=== PATIENT | female | born 1955 | race African-American/Black ===

== ENCOUNTER 2016-09-25 17:06 | Emergency (ER) | payer MEDICAID ==
[~2016-09-25] VITALS: Ht 162.6 cm; Wt 55.0 kg
[~2016-09-25 17:06] MED LIST: KEPP500 PO; PHEN100C4 PO
[2016-09-25] MEDS ORDERED: KETOROLAC 30MG/ML VIAL IV STA (22:24)
[2016-09-25] MEDS ORDERED: SODIUM CHLORIDE 0.9% 1,000 ML IV ONE (22:24)
[2016-09-25] MEDS ORDERED: ONDANSETRON HCL 4MG/2ML VIAL IV STA (22:24)
[2016-09-25] MEDS ORDERED: FAMOTIDINE 20MG/2ML VIAL IV ONE (22:30)
[2016-09-25 23:43] LABS: CLARITY URINE CLEAR (CLEAR); COLOR URINE YELLOW (YELLOW); GLUCOSE URINE NEGATIVE (NEGATIVE); KETONES URINE NEGATIVE (NEGATIVE); LEUKOCYTE ESTERASE URINE NEGATIVE (NEGATIVE); NITRITE URINE NEGATIVE (NEGATIVE); OCCULT BLOOD URINE NEGATIVE (NEGATIVE); PROTEIN URINE NEGATIVE (NEGATIVE); SPECIFIC GRAVITY URINE 1.013 (1.005-1.030); UROBILINOGEN URINE 0.2 E.U./dL (0.2-1.0)
[2016-09-26 00:02] LABS: *AMPHETAMINES SCREEN URINE NEGATIVE (NEGATIVE); *BARBITURATES SCREEN URINE NEGATIVE (NEGATIVE); *BENZODIAZEPINES SCREEN URINE NEGATIVE (NEGATIVE); *COCAINE SCREEN URINE NEGATIVE (NEGATIVE); CANNABINOID URINE SCREEN NEGATIVE (NEGATIVE); ECSTASY MDMA SCREEN URINE NEGATIVE (NEGATIVE); METHADONE URINE SCREEN NEGATIVE (NEGATIVE); OPIATES URINE SCREEN NEGATIVE (NEGATIVE); PHENCYCLIDINE URINE SCREEN NEGATIVE (NEGATIVE)
[2016-09-26 00:15] LABS: BASOPHILS % 0.8 % (0.0-2.0); EOSINOPHILS % 4.2 % (0.0-5.0); HEMATOCRIT. 35.3 % (36.0-48.0); HEMOGLOBIN. 11.8 g/dL (12.0-16.0); LYMPHOCYTES % 31.7 % (20.0-50.0); MEAN CORPUSCULAR HEMOGLOBIN 28.2 pg (28.0-32.0); MEAN CORPUSCULAR HGB CONC 33.6 g/dL (31.0-37.0); MONOCYTES % 13.7 % (2.0-8.0); NEUTROPHILS % 49.6 % (40.0-76.0); RED CELL DISTRIBUTION WIDTH 23.3 % (11.6-14.6); WHITE BLOOD COUNT 6.3 x1000/uL (4.5-11.0)
[2016-09-26 00:19] LABS: DIFFERENTIAL COMMENT 1
[2016-09-26 00:20] LABS: CHLORIDE 103 mEq/L (98-107); INDEX HEMOLYSI 1 (1-3); INDEX ICTERIC 1 (1-4); INDEX LIPEMIC 1 (1-3)
[2016-09-26 00:26] LABS: ANION GAP 15; CARBON DIOXIDE 27 mEq/L (21-32); LIPASE 142 IU/L (73-393); UREA NITROGEN BLOOD 12 mg/dL (7-21); eGFR > 60 mL/min (>60)
[2016-09-26 00:36] LABS: MEAN PLATELET VOLUME 6.9 fl (7.4-10.4); PLATELET 379 x1000/uL (130-400)
[2016-09-26] MEDS ORDERED: IBUPROFEN 400MG TABLET PO ONE (00:45)
[2016-09-26 01:15] VITALS: BP 127/74
== END 2016-09-26 01:15 | disposition home or self-care (01) ==
LOC: ER 17:22
DX: R10.13 Epigastric pain (principal); R11.2 Nausea with vomiting, unspecified; E11.9 Type 2 diabetes mellitus without complications; R56.9 Unspecified convulsions
CPT/HCPCS: 36415; 80048; 80305; 81003; 83690; 85025; 96360; 99284; J7030

== ENCOUNTER 2016-09-26 10:17 | Emergency (ER) | payer MEDICAID ==
[~2016-09-26] VITALS: Ht 165.1 cm; Wt 57.0 kg
[2016-09-26 10:47] VITALS: BP 158/102
== END 2016-09-26 17:31 | disposition home or self-care (01) ==
LOC: ER 10:20
DX: R56.9 Unspecified convulsions (principal); Z79.899 Other long term (current) drug therapy; Z59.0 Homelessness
CPT/HCPCS: 99281

== ENCOUNTER 2016-11-20 05:57 | Emergency (ER) | payer MEDICAID ==
[~2016-11-20] VITALS: Ht 170.2 cm; Wt 59.0 kg
[2016-11-20] MEDS ORDERED: LEVETIRACETAM 500MG TABLET PO ONE (06:45)
[2016-11-20] MEDS ORDERED: PHENYTOIN SODIUM 1,000 MG in SODIUM CHLORIDE 0.9% 100 ML IV ONE (07:30)
[2016-11-20] MEDS ORDERED: PHENYTOIN SODIUM EXTENDED 100MG CAPSULE PO ONE (09:15)
[2016-11-20 10:30] VITALS: BP 133/65
== END 2016-11-20 12:04 | disposition home or self-care (01) ==
LOC: ER 06:58
DX: G40.909 Epilepsy, unspecified, not intractable, without status epilepticus (principal); I10 Essential (primary) hypertension; F17.200 Nicotine dependence, unspecified, uncomplicated
CPT/HCPCS: 36415; 80185; 96365; 99284; J1165; Z7610; J7050

== ENCOUNTER 2016-11-24 20:13 | Emergency (ER) | payer MEDICAID ==
[~2016-11-24] VITALS: Ht 167.6 cm; Wt 50.0 kg
[2016-11-25 01:35] VITALS: BP 130/88
== END 2016-11-25 01:35 | disposition home or self-care (01) ==
LOC: ER 20:28
DX: M25.571 Pain in right ankle and joints of right foot (principal); M79.604 Pain in right leg; G40.909 Epilepsy, unspecified, not intractable, without status epilepticus; I10 Essential (primary) hypertension; Z86.11 Personal history of tuberculosis; Z85.028 Personal history of other malignant neoplasm of stomach; F17.210 Nicotine dependence, cigarettes, uncomplicated; Z59.0 Homelessness; W01.0XXA Fall on same level from slipping, tripping and stumbling without subsequent striking against object, initial encounter; Y93.89 Activity, other specified; Y92.488 Other paved roadways as the place of occurrence of the external cause
CPT/HCPCS: 99283

== ENCOUNTER 2016-11-25 22:19 | Emergency (ER) | payer MEDICAID ==
[~2016-11-25] VITALS: Ht 170.2 cm; Wt 64.0 kg
[2016-11-26] MEDS ORDERED: IBUPROFEN 400MG TABLET PO ONE (01:45)
[2016-11-26 04:28] VITALS: BP 129/76
== END 2016-11-26 04:53 | disposition home or self-care (01) ==
LOC: ER 23:03
DX: M79.604 Pain in right leg (principal); J45.909 Unspecified asthma, uncomplicated; I10 Essential (primary) hypertension; E11.9 Type 2 diabetes mellitus without complications; F17.200 Nicotine dependence, unspecified, uncomplicated
CPT/HCPCS: 73562; 73590; 99284

== ENCOUNTER 2016-12-07 18:18 | Emergency (ER) | payer MEDICAID, OTHER ==
[~2016-12-07] VITALS: Ht 162.6 cm; Wt 55.0 kg
[2016-12-07] MEDS ORDERED: IBUPROFEN 600MG TABLET PO STA (18:32)
[2016-12-07] MEDS ORDERED: LEVETIRACETAM 500MG TABLET PO ONE (18:45)
[2016-12-07 18:54] LABS: EOSINOPHILS % 4.9 % (0.0-5.0); HEMATOCRIT. 35.7 % (36.0-48.0); HEMOGLOBIN. 11.6 g/dL (12.0-16.0); LYMPHOCYTES % 34.3 % (20.0-50.0); MEAN CORPUSCULAR HEMOGLOBIN 28.7 pg (28.0-32.0); MEAN CORPUSCULAR VOLUME 88.5 fL (81.0-99.0); MEAN PLATELET VOLUME 6.8 fl (7.4-10.4); MONOCYTES % 11.1 % (2.0-8.0); NEUTROPHILS % 48.7 % (40.0-76.0); PLATELET 401 x1000/uL (130-400); RED BLOOD CELL COUNT 4.03 mill/uL (4.2-5.4); RED CELL DISTRIBUTION WIDTH 17.4 % (11.6-14.6)
[2016-12-07 18:57] LABS: CHLORIDE 106 mEq/L (98-107)
[2016-12-07 19:05] LABS: CARBON DIOXIDE 26 mEq/L (21-32); PHENYTOIN 5.5 ug/mL (10-20)
[2016-12-07 19:15] LABS: CLARITY URINE CLOUDY (CLEAR); COLOR URINE YELLOW (YELLOW); GLUCOSE URINE NEGATIVE (NEGATIVE); KETONES URINE TRACE (NEGATIVE); LEUKOCYTE ESTERASE URINE TRACE (NEGATIVE); NITRITE URINE NEGATIVE (NEGATIVE); OCCULT BLOOD URINE NEGATIVE (NEGATIVE); PROTEIN URINE NEGATIVE (NEGATIVE); SPECIFIC GRAVITY URINE 1.029 (1.005-1.030)
[2016-12-07] MEDS ORDERED: PHENYTOIN SODIUM EXTENDED 100MG CAPSULE PO ONE (19:30)
[2016-12-07 19:40] LABS: *AMPHETAMINES SCREEN URINE NEGATIVE (NEGATIVE); *BARBITURATES SCREEN URINE NEGATIVE (NEGATIVE); *BENZODIAZEPINES SCREEN URINE NEGATIVE (NEGATIVE); *COCAINE SCREEN URINE NEGATIVE (NEGATIVE); CANNABINOID URINE SCREEN NEGATIVE (NEGATIVE); METHADONE URINE SCREEN NEGATIVE (NEGATIVE); OPIATES URINE SCREEN NEGATIVE (NEGATIVE); PHENCYCLIDINE URINE SCREEN NEGATIVE (NEGATIVE)
[2016-12-07 23:24] VITALS: BP 128/78
== END 2016-12-07 23:45 | disposition home or self-care (01) ==
LOC: ER 18:19
DX: G40.909 Epilepsy, unspecified, not intractable, without status epilepticus (principal); M25.511 Pain in right shoulder; M79.605 Pain in left leg; E11.9 Type 2 diabetes mellitus without complications; I10 Essential (primary) hypertension; J45.909 Unspecified asthma, uncomplicated
CPT/HCPCS: 36415; 73030; 80053; 80185; 80305; 81001; 85025; 99285; Z7610

== ENCOUNTER 2016-12-17 18:12 | Emergency (ER) | payer MEDICAID, OTHER ==
[~2016-12-17] VITALS: Ht 172.7 cm; Wt 64.0 kg
[2016-12-17] MEDS ORDERED: ONDANSETRON 4MG ODT PO PRN (23:15)
[2016-12-17 23:18] LABS: BASOPHILS % 0.4 % (0.0-2.0); HEMATOCRIT. 33.9 % (36.0-48.0); LYMPHOCYTES % 30.5 % (20.0-50.0); MEAN CORPUSCULAR HEMOGLOBIN 29.3 pg (28.0-32.0); MEAN PLATELET VOLUME 6.7 fl (7.4-10.4); MONOCYTES % 13.1 % (2.0-8.0); PLATELET 350 x1000/uL (130-400); RED BLOOD CELL COUNT 3.76 mill/uL (4.2-5.4); RED CELL DISTRIBUTION WIDTH 17.4 % (11.6-14.6)
[2016-12-17 23:22] LABS: CLARITY URINE CLEAR (CLEAR); COLOR URINE YELLOW (YELLOW); GLUCOSE URINE NEGATIVE (NEGATIVE); KETONES URINE NEGATIVE (NEGATIVE); LEUKOCYTE ESTERASE URINE 2+ (NEGATIVE); NITRITE URINE POSITIVE (NEGATIVE); OCCULT BLOOD URINE NEGATIVE (NEGATIVE); PROTEIN URINE NEGATIVE (NEGATIVE); SPECIFIC GRAVITY URINE 1.009 (1.005-1.030); UROBILINOGEN URINE 0.2 E.U./dL (0.2-1.0)
[2016-12-17 23:29] LABS: CARBON DIOXIDE 29 mEq/L (21-32); CHLORIDE 104 mEq/L (98-107); ETHANOL BLOOD 129 mg/dL
[2016-12-17 23:33] LABS: *AMPHETAMINES SCREEN URINE NEGATIVE (NEGATIVE); *BARBITURATES SCREEN URINE NEGATIVE (NEGATIVE); *BENZODIAZEPINES SCREEN URINE NEGATIVE (NEGATIVE); *COCAINE SCREEN URINE PRESUMTIVE POSITIVE (NEGATIVE); CANNABINOID URINE SCREEN NEGATIVE (NEGATIVE); METHADONE URINE SCREEN NEGATIVE (NEGATIVE); OPIATES URINE SCREEN NEGATIVE (NEGATIVE); PHENCYCLIDINE URINE SCREEN NEGATIVE (NEGATIVE)
[2016-12-18] MEDS ORDERED: LEVETIRACETAM 500MG TABLET PO ONE (00:15)
[2016-12-18] MEDS ORDERED: PHENYTOIN SODIUM EXTENDED 100MG CAPSULE PO ONE (00:15)
[2016-12-18] MEDS ORDERED: SODIUM CHLORIDE 0.9% 1,000 ML IV ONE (00:17)
[2016-12-18] MEDS ORDERED: DIPHENHYDRAMINE 50MG/ML VIAL IV ONE (00:30)
[2016-12-18] MEDS ORDERED: CEFTRIAXONE 1 G PREMIX 50 ML IV ONE (00:30)
[2016-12-18 06:31] VITALS: BP 112/62
== END 2016-12-18 06:11 | disposition home or self-care (01) ==
LOC: ER 18:22
DX: N39.0 Urinary tract infection, site not specified (principal); F14.10 Cocaine abuse, uncomplicated; F10.10 Alcohol abuse, uncomplicated; M79.604 Pain in right leg; J45.909 Unspecified asthma, uncomplicated; I10 Essential (primary) hypertension; E11.9 Type 2 diabetes mellitus without complications; F17.200 Nicotine dependence, unspecified, uncomplicated
CPT/HCPCS: 36415; 80053; 80305; 81001; 85025; 96365; 96375; 99284; G0482; J0696; J1200; J7030; Q0162; Z7610

== ENCOUNTER 2016-12-19 15:51 | Emergency (ER) | payer MEDICAID ==
[~2016-12-19] VITALS: Ht 167.6 cm; Wt 55.0 kg
[2016-12-19] MEDS ORDERED: KETOROLAC 30MG/ML VIAL IV ONE (18:30)
[2016-12-19] MEDS ORDERED: FAMOTIDINE 20MG/2ML VIAL IV SCH (18:30)
[2016-12-19] MEDS ORDERED: SODIUM CHLORIDE 0.9% 1,000 ML IV ONE (18:30)
[2016-12-19 19:35] LABS: BASOPHILS % 1.3 % (0.0-2.0); EOSINOPHILS % 12.3 % (0.0-5.0); HEMATOCRIT. 31.5 % (36.0-48.0); HEMOGLOBIN. 10.4 g/dL (12.0-16.0); LYMPHOCYTES % 28.8 % (20.0-50.0); MEAN CORPUSCULAR HEMOGLOBIN 29.3 pg (28.0-32.0); MEAN CORPUSCULAR VOLUME 88.8 fL (81.0-99.0); MEAN PLATELET VOLUME 6.6 fl (7.4-10.4); MONOCYTES % 14.1 % (2.0-8.0); NEUTROPHILS % 43.5 % (40.0-76.0); PLATELET 315 x1000/uL (130-400); RED BLOOD CELL COUNT 3.55 mill/uL (4.2-5.4)
[2016-12-19 19:47] LABS: CARBON DIOXIDE 26 mEq/L (21-32); CHLORIDE 108 mEq/L (98-107)
[2016-12-20 02:25] VITALS: BP 131/74
== END 2016-12-20 02:38 | disposition home or self-care (01) ==
LOC: ER 16:01
DX: K80.20 Calculus of gallbladder without cholecystitis without obstruction (principal); S79.922A Unspecified injury of left thigh, initial encounter; I10 Essential (primary) hypertension; W18.30XA Fall on same level, unspecified, initial encounter; Y93.01 Activity, walking, marching and hiking; Y92.410 Unspecified street and highway as the place of occurrence of the external cause; Y99.8 Other external cause status
CPT/HCPCS: 36415; 73502; 73552; 76705; 80053; 85025; 96361; 96374; 96375; 99285; J1885; J3490; J7030

== ENCOUNTER 2017-01-07 08:48 | Emergency (ER) | payer MEDICAID ==
[~2017-01-07] VITALS: Ht 165.1 cm; Wt 63.0 kg
[2017-01-07 12:05] LABS: CLARITY URINE CLEAR (CLEAR); COLOR URINE YELLOW (YELLOW); GLUCOSE URINE NEGATIVE (NEGATIVE); KETONES URINE NEGATIVE (NEGATIVE); LEUKOCYTE ESTERASE URINE TRACE (NEGATIVE); NITRITE URINE NEGATIVE (NEGATIVE); OCCULT BLOOD URINE NEGATIVE (NEGATIVE); PH URINE 6.5 (4.5-8.0); PROTEIN URINE NEGATIVE (NEGATIVE); SPECIFIC GRAVITY URINE 1.016 (1.005-1.030)
[2017-01-07 12:30] LABS: BASOPHILS % 0.2 % (0.0-2.0); EOSINOPHILS % 0.7 % (0.0-5.0); HEMATOCRIT. 37.1 % (36.0-48.0); HEMOGLOBIN. 11.8 g/dL (12.0-16.0); LYMPHOCYTES % 13.8 % (20.0-50.0); MEAN CORPUSCULAR HEMOGLOBIN 28.1 pg (28.0-32.0); MEAN CORPUSCULAR VOLUME 87.9 fL (81.0-99.0); MEAN PLATELET VOLUME 6.8 fl (7.4-10.4); MONOCYTES % 7.2 % (2.0-8.0); NEUTROPHILS % 78.1 % (40.0-76.0); PLATELET 310 x1000/uL (130-400); RED BLOOD CELL COUNT 4.22 mill/uL (4.2-5.4); RED CELL DISTRIBUTION WIDTH 18.1 % (11.6-14.6)
[2017-01-07 12:39] LABS: PROTHROMBIN TIME 10.7 sec
[2017-01-07 12:48] LABS: CARBON DIOXIDE 32 mEq/L (21-32); CHLORIDE 103 mEq/L (98-107)
[2017-01-07 13:21] LABS: *AMPHETAMINES SCREEN URINE NEGATIVE (NEGATIVE); *BARBITURATES SCREEN URINE NEGATIVE (NEGATIVE); *BENZODIAZEPINES SCREEN URINE NEGATIVE (NEGATIVE); *COCAINE SCREEN URINE NEGATIVE (NEGATIVE); CANNABINOID URINE SCREEN NEGATIVE (NEGATIVE); METHADONE URINE SCREEN NEGATIVE (NEGATIVE); OPIATES URINE SCREEN NEGATIVE (NEGATIVE); PHENCYCLIDINE URINE SCREEN NEGATIVE (NEGATIVE)
[2017-01-07 22:40] VITALS: BP 136/80
== END 2017-01-07 22:40 | disposition home or self-care (01) ==
LOC: ER 08:51
DX: N39.0 Urinary tract infection, site not specified (principal); M79.651 Pain in right thigh; J45.909 Unspecified asthma, uncomplicated; E11.9 Type 2 diabetes mellitus without complications; I10 Essential (primary) hypertension; C80.1 Malignant (primary) neoplasm, unspecified; Z59.0 Homelessness; W01.0XXA Fall on same level from slipping, tripping and stumbling without subsequent striking against object, initial encounter; Y93.89 Activity, other specified; Y92.89 Other specified places as the place of occurrence of the external cause; Y99.8 Other external cause status
CPT/HCPCS: 36415; 73502; 73552; 80053; 80305; 81001; 83690; 85025; 85610; 99285

== ENCOUNTER 2017-01-08 06:56 | Emergency (ER) | payer MEDICAID ==
[~2017-01-08] VITALS: Ht 170.2 cm; Wt 69.0 kg
[2017-01-08] MEDS: KETOROLAC 60MG/2ML VIAL IM ONE ×2 (13:04→13:09)
[2017-01-08 13:27] LABS: BASOPHILS % 0.9 % (0.0-2.0); EOSINOPHILS % 1.5 % (0.0-5.0); HEMATOCRIT. 36.5 % (36.0-48.0); HEMOGLOBIN. 11.9 g/dL (12.0-16.0); LYMPHOCYTES % 23.1 % (20.0-50.0); MEAN CORPUSCULAR HEMOGLOBIN 28.7 pg (28.0-32.0); MEAN CORPUSCULAR VOLUME 88.2 fL (81.0-99.0); MEAN PLATELET VOLUME 6.8 fl (7.4-10.4); MONOCYTES % 12.9 % (2.0-8.0); NEUTROPHILS % 61.6 % (40.0-76.0); PLATELET 294 x1000/uL (130-400); RED BLOOD CELL COUNT 4.13 mill/uL (4.2-5.4); RED CELL DISTRIBUTION WIDTH 17.8 % (11.6-14.6)
[2017-01-08 13:28] LABS: CLARITY URINE CLOUDY (CLEAR); COLOR URINE DARK YELLOW (YELLOW); GLUCOSE URINE NEGATIVE (NEGATIVE); KETONES URINE TRACE (NEGATIVE); LEUKOCYTE ESTERASE URINE 1+ (NEGATIVE); NITRITE URINE NEGATIVE (NEGATIVE); OCCULT BLOOD URINE NEGATIVE (NEGATIVE); PH URINE 6.5 (4.5-8.0); PROTEIN URINE TRACE (NEGATIVE); SPECIFIC GRAVITY URINE 1.024 (1.005-1.030)
[2017-01-08 13:38] LABS: CARBON DIOXIDE 30 mEq/L (21-32); CHLORIDE 104 mEq/L (98-107)
[2017-01-08 16:03] VITALS: BP 118/59
== END 2017-01-08 17:55 | disposition home or self-care (01) ==
LOC: ER 11:34
DX: N39.0 Urinary tract infection, site not specified (principal); M79.604 Pain in right leg; R51 Headache; F17.200 Nicotine dependence, unspecified, uncomplicated; I10 Essential (primary) hypertension; E11.9 Type 2 diabetes mellitus without complications; W19.XXXA Unspecified fall, initial encounter; Y93.89 Activity, other specified; Y92.89 Other specified places as the place of occurrence of the external cause; Y99.8 Other external cause status
CPT/HCPCS: 36415; 73590; 80048; 81001; 85025; 99285; J1885

== ENCOUNTER 2017-09-19 19:53 | Inpatient (IN) | payer SELFPAY ==
[~2017-09-19] VITALS: Ht 170.2 cm; Wt 65.8 kg
[2017-09-19] MEDS ORDERED: ONDANSETRON HCL 4MG/2ML VIAL IV STA (21:08)
[2017-09-19] MEDS ORDERED: SODIUM CHLORIDE 0.9% 1,000 ML IV ONE (21:08)
[2017-09-19 21:37] LABS: CHLORIDE 105 mEq/L (98-107)
[2017-09-19 21:41] LABS: BASOPHILS % 0.8 % (0.0-2.0); EOSINOPHILS % 2.9 % (0.0-5.0); HEMATOCRIT. 37.9 % (36.0-48.0); HEMOGLOBIN. 12.3 g/dL (12.0-16.0); LYMPHOCYTES % 39.7 % (20.0-50.0); MEAN CORPUSCULAR HEMOGLOBIN 28.3 pg (28.0-32.0); MEAN PLATELET VOLUME 6.6 fl (7.4-10.4); MONOCYTES % 12.5 % (2.0-8.0); NEUTROPHILS % 44.1 % (40.0-76.0); PLATELET 289 x1000/uL (130-400); RED BLOOD CELL COUNT 4.35 mill/uL (4.2-5.4); RED CELL DISTRIBUTION WIDTH 18.1 % (11.6-14.6)
[2017-09-19 21:52] LABS: PARTIAL THROMBOPLASTIN TIME 24.9 sec (23.4-31.0); PROTHROMBIN TIME 10.7 sec (9.4-11.6)
[2017-09-20] MEDS ORDERED: IOHEXOL-300 100 ML BOTTLE ONE (01:42)
[2017-09-20 03:20] VITALS: BP 150/85
[2017-09-20 04:00] VITALS: BP 150/85
[2017-09-20] MEDS ORDERED: MORPHINE SULFATE 4 MG/ML CPJ (NOT FOR IM USE) IV PRN (05:00)
[2017-09-20] MEDS ORDERED: ONDANSETRON HCL 4MG/2ML VIAL IV PRN (05:00)
[2017-09-20 08:00] VITALS: BP 125/65
[2017-09-20] MEDS: ACETAMINOPHEN 325MG TABLET PO PRN ×2 (10:20→20:35)
[2017-09-20] MEDS: LEVETIRACETAM 500MG TABLET PO SCH ×2 (10:20→20:34)
[2017-09-20] MEDS: FAMOTIDINE 20MG/2ML VIAL IV SCH ×2 (10:20→16:36)
[2017-09-20] MEDS ORDERED: FOLIC ACID 1 MG, THIAMINE HCL 100 MG, MVI, ADULT NO.1 10 ML in DEXTROSE 5% WATER 1,000 ML IV ONE ×4 (11:00)
[2017-09-20 12:00] VITALS: BP 152/89
[2017-09-20] MEDS: NICOTINE 21MG PATCH TD SCH (14:26)
[2017-09-20 16:00] VITALS: BP 160/67
[2017-09-20] MEDS: CHLORDIAZEPOXIDE 25MG CAPSULE PO SCH ×2 (16:36→23:03)
[2017-09-20] MEDS ORDERED: SODIUM CHLORIDE 3% FOR INH 4ML UD NEB INH SCH (19:00)
[2017-09-20 20:00] VITALS: BP 118/65
[2017-09-20] MEDS: PHENYTOIN SODIUM EXTENDED 100MG CAPSULE PO SCH (20:34)
[2017-09-21] VITALS: BP 115/58
[2017-09-21 04:00] VITALS: BP 147/85
[2017-09-21] MEDS: CHLORDIAZEPOXIDE 25MG CAPSULE PO SCH ×3 (06:43→21:15)
[2017-09-21 08:00] VITALS: BP 128/77
[2017-09-21] MEDS: FAMOTIDINE 20MG/2ML VIAL IV SCH ×2 (09:00→17:00)
[2017-09-21] MEDS: FOLIC ACID 1MG TABLET PO SCH (11:01)
[2017-09-21] MEDS: THIAMINE HCL 100MG TABLET PO SCH (11:01)
[2017-09-21] MEDS: ACETAMINOPHEN 325MG TABLET PO PRN (11:01)
[2017-09-21] MEDS: LEVETIRACETAM 500MG TABLET PO SCH ×2 (11:01→21:15)
[2017-09-21] MEDS: MULTIVITAMINS,THER W-MINERALS TABLET PO SCH (11:02)
[2017-09-21] MEDS: NICOTINE 21MG PATCH TD SCH (11:04)
[2017-09-21 12:00] VITALS: BP 142/96
[2017-09-21] MEDS ORDERED: LORAZEPAM 2MG/ML CPJ IV PRN (12:15)
[2017-09-21 16:00] VITALS: BP 158/96
[2017-09-21 20:00] VITALS: BP 161/105
[2017-09-21] MEDS ORDERED: CLONIDINE 0.1MG TABLET PO PRN ×2 (21:00→21:04)
[2017-09-21] MEDS: PHENYTOIN SODIUM EXTENDED 100MG CAPSULE PO SCH (21:14)
[2017-09-21] MEDS: QUETIAPINE FUMARATE 25MG TABLET PO SCH (21:15)
[2017-09-21] MEDS: HALOPERIDOL LACTATE 5MG/ML VIAL IM PRN (21:15)
[2017-09-22] VITALS: BP 124/79
[2017-09-22 04:00] VITALS: BP 121/71
[2017-09-22] MEDS: CHLORDIAZEPOXIDE 25MG CAPSULE PO SCH ×3 (05:03→21:17)
[2017-09-22 08:00] VITALS: BP 92/57
[2017-09-22] MEDS: FAMOTIDINE 20MG/2ML VIAL IV SCH ×2 (09:00→17:00)
[2017-09-22] MEDS: FOLIC ACID 1MG TABLET PO SCH (09:45)
[2017-09-22] MEDS: MULTIVITAMINS,THER W-MINERALS TABLET PO SCH (09:45)
[2017-09-22] MEDS: LEVETIRACETAM 500MG TABLET PO SCH ×2 (09:45→21:17)
[2017-09-22] MEDS: QUETIAPINE FUMARATE 25MG TABLET PO SCH ×2 (09:45→21:17)
[2017-09-22] MEDS: THIAMINE HCL 100MG TABLET PO SCH (09:46)
[2017-09-22] MEDS: NICOTINE 21MG PATCH TD SCH (09:47)
[2017-09-22 12:00] VITALS: BP 108/76
[2017-09-22 16:00] VITALS: BP 19/99
[2017-09-22 20:00] VITALS: BP 134/79
[2017-09-22] MEDS: PHENYTOIN SODIUM EXTENDED 100MG CAPSULE PO SCH (21:17)
[2017-09-22] MEDS: HALOPERIDOL LACTATE 5MG/ML VIAL IM PRN (21:28)
[2017-09-23] VITALS: BP 129/71
[2017-09-23 04:00] VITALS: BP 137/88
[2017-09-23] MEDS: CHLORDIAZEPOXIDE 25MG CAPSULE PO SCH ×2 (05:42→15:03)
[2017-09-23 08:00] VITALS: BP 130/80
[2017-09-23 08:08] LABS: HEMATOCRIT. 35.5 % (36.0-48.0); HEMOGLOBIN. 11.9 g/dL (12.0-16.0); MEAN CORPUSCULAR HEMOGLOBIN 29.6 pg (28.0-32.0); MEAN CORPUSCULAR VOLUME 88.6 fL (81.0-99.0); MEAN PLATELET VOLUME 7.4 fl (7.4-10.4); PLATELET 231 x1000/uL (130-400); RED BLOOD CELL COUNT 4.01 mill/uL (4.2-5.4); RED CELL DISTRIBUTION WIDTH 18.9 % (11.6-14.6)
[2017-09-23 08:30] LABS: CHLORIDE 107 mEq/L (98-107)
[2017-09-23] MEDS: FAMOTIDINE 20MG/2ML VIAL IV SCH ×2 (09:00→17:00)
[2017-09-23] MEDS: THIAMINE HCL 100MG TABLET PO SCH (10:59)
[2017-09-23] MEDS: FOLIC ACID 1MG TABLET PO SCH (11:00)
[2017-09-23] MEDS: QUETIAPINE FUMARATE 25MG TABLET PO SCH (11:00)
[2017-09-23] MEDS: NICOTINE 21MG PATCH TD SCH (11:00)
[2017-09-23] MEDS: LEVETIRACETAM 500MG TABLET PO SCH (11:00)
[2017-09-23] MEDS: MULTIVITAMINS,THER W-MINERALS TABLET PO SCH (11:00)
[2017-09-23] MEDS ORDERED: IPRATROPIUM/ALBUTEROL 0.5-3(2.5)MG/3ML NEB HHN PRN (11:15)
[2017-09-23] MEDS ORDERED: BENZONATATE 100MG CAPSULE PO PRN (11:15)
[2017-09-23 12:00] VITALS: BP 130/60
[2017-09-23 12:49] LABS: PLATELET ESTIMATE NORMAL
[2017-09-23 16:00] VITALS: BP 140/80
[2017-09-23 17:12] LABS: QFT MITOGEN VALUE 8.21 IU/mL (.); QFT TB AG MINUS NIL VALUE 0.18 IU/mL (.); QFT TB AG VALUE 0.23 IU/mL (.); QFT TB GOLD Negative (Negative)
[2017-09-23 17:41] VITALS: BP 140/80
== END 2017-09-23 18:32 | disposition home or self-care (01) | DRG 816 ==
LOC: ER 20:19 → 6EST 23:07 → EDBEDREQTM 23:32 → 6EST 09-20 13:31
PROVIDERS: ADMIT Internal Medicine; ATTEND Internal Medicine
DX: T51.91XA Toxic effect of unspecified alcohol, accidental (unintentional), initial encounter (principal); J96.00 Acute respiratory failure, unspecified whether with hypoxia or hypercapnia; G40.909 Epilepsy, unspecified, not intractable, without status epilepticus; E44.0 Moderate protein-calorie malnutrition; J44.1 Chronic obstructive pulmonary disease with (acute) exacerbation; I10 Essential (primary) hypertension; F10.10 Alcohol abuse, uncomplicated; F17.210 Nicotine dependence, cigarettes, uncomplicated; Y90.6 Blood alcohol level of 120-199 mg/100 ml; Z78.9 Other specified health status; Z82.49 Family history of ischemic heart disease and other diseases of the circulatory system; Z86.11 Personal history of tuberculosis; Z68.22 Body mass index [BMI] 22.0-22.9, adult
CPT/HCPCS: 36415; 71045; 71250; 74177; 80048; 80053; 83690; 84484; 85025; 85610; 85730; 86480; 87116; 93005; 96374; 99285; G0482; J1630; J2270; J2405; J3411; J3490; J7030; J7070; Q9967

== ENCOUNTER 2017-10-15 16:04 | Emergency (ER) | payer SELFPAY ==
[~2017-10-15] VITALS: Ht 162.6 cm; Wt 53.0 kg
[2017-10-15] MEDS ORDERED: LEVETIRACETAM 500MG PREMIX 100 ML IV ONE (17:45)
[2017-10-15] MEDS ORDERED: SODIUM CHLORIDE 0.9% 1,000 ML IV ONE (17:45)
[2017-10-15] MEDS ORDERED: PROCHLORPERAZINE 10MG/2ML VIAL IV ONE (20:30)
[2017-10-15] MEDS ORDERED: KETOROLAC 15MG/ML VIAL IV ONE (20:30)
[2017-10-15] MEDS ORDERED: DIPHENHYDRAMINE 50MG/ML VIAL IV ONE (20:30)
[2017-10-15] MEDS ORDERED: PHENYTOIN SODIUM EXTENDED 100MG CAPSULE PO ONE (21:15)
[2017-10-15 21:38] VITALS: BP 117/72
== END 2017-10-15 22:05 | disposition home or self-care (01) ==
LOC: ER 16:56
DX: R56.9 Unspecified convulsions (principal); I10 Essential (primary) hypertension; R51 Headache; W19.XXXA Unspecified fall, initial encounter; Y93.89 Activity, other specified; Y99.8 Other external cause status; Y92.89 Other specified places as the place of occurrence of the external cause; Z91.14 Patient's other noncompliance with medication regimen
CPT/HCPCS: 36415; 80185; 82542; 96365; 96366; 96375; 99285; J0780; J1885; J1953; J7030; Z7610